=== PATIENT | male | born 1925 | race Native Hawaiian/Other Pacific Islander ===

== ENCOUNTER 2016-07-14 08:42 | Outpatient (CLI) | payer OTHER ==
[~2016-07-14 08:42] MED LIST: ASPIRIN325 M1 OR; CEPH500C20 PO; CLOTCRE5 EX; FLUT0.05 NAS; LEVO500T PO; LISI10TA11 PO; LOPRESSOR100 MG PO; METO100T37 PO; METO50TA27 PO; NITROSTAT0.4 MG SL; PLAVIX75 MG PO; SMZ/TMP DS1 TAB PO; TOBRADEX OTIC; ZANTAC 75 PO
== END 2016-07-14 21:00 | disposition home or self-care (01) ==
LOC: LABW 08:42
PROVIDERS: Nurse Practitioner Adult Health
DX: I25.10 Atherosclerotic heart disease of native coronary artery without angina pectoris (principal); E78.2 Mixed hyperlipidemia; Z79.899 Other long term (current) drug therapy
CPT/HCPCS: 36415; 80061; 80076